=== PATIENT | female | born 1975 | race Caucasian/White ===

== ENCOUNTER 2016-09-10 00:51 | Emergency (ER) | payer SELFPAY ==
[2016-09-10 00:53] VITALS: BP 111/69
== END 2016-09-10 04:47 | disposition left against medical advice (07) ==
LOC: ED 00:51
DX: Z53.21 Procedure and treatment not carried out due to patient leaving prior to being seen by health care provider (principal)

== ENCOUNTER 2016-09-10 20:33 | Emergency (ER) | payer SELFPAY ==
[2016-09-10 22:51] LABS: PLATELET COUNT 242 x10^3mcL (130-400); RED CELL DISTRIBUTION WIDTH 13.4 % (11.5-14.5)
[2016-09-10 22:52] LABS: BASOPHIL % 0 % (0-2)
[2016-09-10 23:04] LABS: CALCIUM 8.1 mg/dL (8.5-10.1); CHLORIDE SERUM 107 mmol/L (98-107); CREATININE SERUM 0.7 mg/dL (0.6-1.0); GFR1 > 60 mL/min; GLUCOSE SERUM 104 mg/dL (74-106); POTASSIUM SERUM 3.3 mmol/L (3.5-5.1); SODIUM SERUM 137 mmol/L (136-145)
[2016-09-10 23:09] LABS: ALKALINE PHOSPHATASE 81 U/L (46-116); ALT/SGPT 42 U/L (14-59); AMYLASE 35 U/L (25-115); AST/SGOT 40 U/L (15-37); BILIRUBIN TOTAL 0.3 mg/dL (0.20-1.00); LIPASE 121 IU/L (73-393); TOTAL PROTEIN, SERUM 6.7 g/dL (6.4-8.2)
[2016-09-10 23:10] LABS: ALBUMIN 2.9 g/dL (3.4-5.0)
[2016-09-11 02:39] VITALS: BP 107/66
== END 2016-09-11 02:39 | disposition home or self-care (01) ==
LOC: ED 20:33
PROVIDERS: Emergency Medicine
DX: N12 Tubulo-interstitial nephritis, not specified as acute or chronic (principal)
CPT/HCPCS: 83880; C9113; J0696; J1885; J2405